=== PATIENT | female | born 1965 ===

== ENCOUNTER 2017-09-27 12:13 | Emergency (ER) | payer BC, SELFPAY ==
[2017-09-27 12:19] VITALS: BMI 27.3
[2017-09-27 12:20] VITALS: RESP 18; TEMP 98.2
[2017-09-27] MEDS ORDERED: Sodium Chloride 0.9% 1,000 ML IV ONE (12:56)
[2017-09-27 13:12] LABS: BASO # 0.1 K/uL (0.0-0.2); BASO % 0.7 % (0.0-2.0); EOS # 0.2 K/uL (0.0-0.7); EOS % 2.2 % (0.0-4.0); HEMOGLOBIN 13.5 g/dL (11.0-16.0); LYMPH # 1.2 K/uL (1.0-4.3); LYMPH % 13.8 % (20.0-40.0); MEAN CELL VOLUME 89.8 fL (81.0-99.0); MEAN CORPUSCULAR HEMOGLOBIN 30.9 pg (27.0-31.0); MEAN CORPUSCULAR HGB CONC 34.3 g/dL (33.0-37.0); MONO # 0.5 K/uL (0.0-0.8); MONO % 6.1 % (0.0-10.0); NEUT # 6.9 K/uL (1.8-7.0); NEUT % 77.2 % (50.0-75.0); RBC 4.39 Mil/uL (3.80-5.20); RED CELL DISTRIBUTION WIDTH 12.9 % (11.5-14.5); WHITE BLOOD COUNT 8.9 K/uL (4.8-10.8)
--- NOTE | 2017-09-27 13:17 | RAD ---
PROCEDURE: Radiographs of the chest and abdomen (obstructive series) HISTORY: abd pain COMPARISON: No prior. TECHNIQUE: AP radiograph of the chest, with upright and supine radiographs of the abdomen. FINDINGS: CHEST: Lungs: Mild bibasilar atelectasis. There are scattered small calcified granulomata seen throughout both lung [place] consistent with prior exposure to a granulomatous disease process. . Cardiovascular: Heart size is borderline enlarged. . No pulmonary vascular congestion. Pleura: No pleural fluid. No pneumothorax. Other findings: None. ABDOMEN AND PELVIS: Bowel: No evidence of acute mechanical bowel obstruction. Moderate amount of stool seen throughout the large bowel consistent with mild fecal retention/constipation. . Free air: None. Bones: Bilateral laminectomy and posterior fixation changes L5-S1 level. Suspect discectomy changes as well at this level. . Other findings: Metallic clips right upper quadrant of the abdomen consistent prior cholecystectomy. . IMPRESSION: Mild bibasilar atelectasis. Scattered calcified granulomata consistent with a prior exposure to a granulomatous disease process. No evidence of acute mechanical bowel obstruction Findings suggest mild constipation. No evidence of free intraperitoneal air. Status post cholecystectomy. Postoperative laminectomy probable discectomy and posterior fusion L5-S1 level as above.
[2017-09-27] MEDS ORDERED: Sodium Chloride 0.9% 1,000 ML ONE (13:24)
--- NOTE | 2017-09-27 13:26 | C.PDOC ---
History Of Present Illness 52 year old female presents to the ED c/o epigastric/colic pain for the past 3 days. Patient reports she has a history of cholecystectomy. Patient denies fever , chills, nausea, vomit, diarrhea. Time Seen by Provider: 09/27/17 12:50 Chief Complaint (Nursing): Abdominal Pain History Per: Patient History/Exam Limitations: no limitations Onset/Duration Of Symptoms: Days Current Symptoms Are (Timing): Still Present Location Of Pain/Discomfort: Epigastric Radiation Of Pain To:: None Quality Of Discomfort: Other (Colic) Exacerbating Factors: None Alleviating Factors: None Additional History Per: Patient Abnormal Vaginal Bleeding: No Past Medical History Reviewed: Historical Data, Nursing Documentation, Vital Signs Vital Signs: Last Vital Signs Temp 98.2 F 09/27/17 12:19 Pulse 60 09/27/17 14:49 Resp 18 09/27/17 14:49 BP 120/77 09/27/17 14:49 Pulse Ox 98 09/27/17 17:05 - Medical History PMH: No Chronic Diseases Surgical History: No Surg Hx Family History: States: Unknown Family Hx - Social History Hx Alcohol Use: No Hx Substance Use: No - Immunization History Hx Tetanus Toxoid Vaccination: No Hx Influenza Vaccination: No Hx Pneumococcal Vaccination: No Review Of Systems Constitutional: Negative for: Fever, Chills Cardiovascular: Negative for: Chest Pain, Palpitations Respiratory: Negative for: Cough, Shortness of Breath Gastrointestinal: Positive for: Abdominal Pain. Negative for: Nausea, Vomiting Skin: Negative for: Rash Physical Exam - Physical Exam Appears: Non-toxic, No Acute Distress Skin: Normal Color, Warm, Dry Head: Atraumatic, Normacephalic Eye(s): bilateral: Normal Inspection Nose: No Discharge, No Deformity Oral Mucosa: Moist Neck: Normal ROM, Supple Chest: Symmetrical Cardiovascular: Rhythm Regular, No Murmur Respiratory: Normal Breath Sounds, No Rales, No Rhonchi, No Wheezing Gastrointestinal/Abdominal: Soft, No Tenderness, No Guarding, No Rebound, Other (Negative McBurney's, negative [place]) Extremity: Normal ROM, No Deformity, No Swelling Neurological/Psych: Oriented x3, Normal Speech, Normal Cognition Gait: Steady ED Course And Treatment - Laboratory Results Result Diagrams: 09/27/17 13:04 09/27/17 13:04 Lab Interpretation: Abnormal (mild elev bili 1.4, AST/ALT 320/274, alk phos 274 wnl) O2 Sat by Pulse Oximetry: 98 (ON RA) Pulse Ox Interpretation: Normal - Other Rad Obstructive series X-Ray X-Ray: Viewed By Me, Read By Radiologist Interpretation: PROCEDURE: Radiographs of the chest and abdomen (obstructive series). HISTORY: abd pain. COMPARISON: No prior. TECHNIQUE: AP radiograph of the chest, with upright and supine radiographs of the abdomen. FINDINGS: CHEST: Lungs: Mild bibasilar atelectasis. There are scattered small calcified granulomata seen throughout both lung burn[place] consistent with prior exposure to a granulomatous disease process. . Cardiovascular: Heart size is borderline enlarged. . No pulmonary vascular congestion. Pleura: No pleural fluid. No pneumothorax. Other findings: None. ABDOMEN AND PELVIS: Bowel: No evidence of acute mechanical bowel obstruction. Moderate amount of stool seen throughout the large bowel consistent with mild fecal retention/ constipation. . Free air: None. Bones: Bilateral laminectomy and posterior fixation changes L5-S1 level. Suspect discectomy changes as well at this level. . Other findings: Metallic clips right upper quadrant of the abdomen consistent prior cholecystectomy. . IMPRESSION: Mild bibasilar atelectasis. Scattered calcified granulomata consistent with a prior exposure to a granulomatous disease process. No evidence of acute mechanical bowel obstruction Findings suggest mild constipation. No evidence of free intraperitoneal air. Status post cholecystectomy. Postoperative laminectomy probable discectomy and posterior fusion L5-S1 level as above. - CT Scan/US Abdomen US Other Rad Studies (CT/US): Read By Radiologist, Radiology Report Reviewed CT/US Interpretation: HISTORY: epigastric colic, h/o ace- elev LFT's. COMPARISON: None. TECHNIQUE: Sonographic evaluation of the right upper quadrant of the abdomen. FINDINGS: LIVER: Liver measures approximately 15.2 cm in in CC dimension. Liver demonstrates smooth contour and increased echotexture suggesting fatty infiltration however other infiltrative hepatocellular disease process not excluded. No mass. No intrahepatic bile duct dilatation. . No ascites. Portal vein demonstrates hepatopetal flow. GALLBLADDER: Status post cholecystectomy. No sonographic Preston sign. COMMON BILE DUCT: Common bile duct is prominent measuring approximately 6.8 mm. No stones. No dilatation. PANCREAS: Pancreas is not well delineated due to body habitus and bowel gas. RIGHT KIDNEY: Right kidney measures approximately 9.9 x 4.7 x 4.5 cm in length. Normal echogenicity. No calculus, mass, or hydronephrosis. . There is a small mid to lower pole cyst that measures approximately 1 cm in greatest dimension. AORTA: No aneurysmal dilatation. IVC: Unremarkable. OTHER FINDINGS: None . IMPRESSION: Status post cholecystectomy. Slightly dilated common bile duct likely due to post cholecystectomy state. No evidence of choledocholithiasis so far as can be seen. Small mid-lower pole cyst as above. No evidence of shadowing calculi or hydronephrosis Progress Note: ns, toradol Reevaluation Time: 17:30 Reassessment Condition: Improved Medical Decision Making Medical Decision Making: Impression : abdominal pain Plan: * Labs * Obstructive series X-Ray * UA * Pepcid 20 mg IVP * IV fluids * Toradol 30 mg IVP mild elev bili/lft's and dilated CBD c/w h/o cholecycstectomy and NOT acute choledocolythiasis nor biliary colic. periumbilical colic, more c/w constipation (FOS) Disposition Doctor Will See Patient In The: Office Counseled Patient/Family Regarding: Studies Performed, Diagnosis - Disposition Disposition: HOME/ ROUTINE Disposition Time: 17:42 Condition: GOOD Forms: [facility] ([place]) - Clinical Impression Clinical Impression: Colicky periumbilical abdominal pain - Scribe Statement The provider has reviewed the documentation as recorded by the Scribe Flash Alvarez All medical record entries made by the Scribe were at my direction and personally dictated by me. I have reviewed the chart and agree that the record accurately reflects my personal performance of the history, physical exam, medical decision making, and the department course for this patient. I have also personally directed, reviewed, and agree with the discharge instructions and disposition.
[2017-09-27 13:28] LABS: ALBUMIN 4.2 g/dL (3.5-5.0); BLOOD UREA NITROGEN 13 mg/dL (7-17); CALCIUM 9.4 mg/dl (8.6-10.4); GFR AFRICAN-AMERICAN > 60; GFR NON-AFRICAN AMERICAN > 60; LIPASE 205 U/L (23-300)
[2017-09-27 13:29] LABS: SQUAMOUS EPITHIAL 1 /hpf (0-5); URINE BILIRUBIN NEGATIVE (NEGATIVE); URINE BLOOD NEGATIVE (NEGATIVE); URINE CLARITY Clear (Clear); URINE COLOR Straw (YELLOW); URINE GLUCOSE (UA) NORMAL (Normal); URINE LEUKOCYTE ESTERASE 1+ Leu/uL (Negative); URINE NITRATE NEGATIVE (NEGATIVE); URINE PROTEIN NEGATIVE (NEGATIVE); URINE UROBILINOGEN NORMAL mg/dL (0.2-1.0)
[2017-09-27 13:40] LABS: ALB/GLOB RATIO 1.3 (1.0-2.1); ALT/SGPT 274 U/L (9-52); AST/SGOT 320 U/L (14-36)
--- NOTE | 2017-09-27 16:33 | US ---
HISTORY: epigastric colic, h/o ace- elev LFT's COMPARISON: None. TECHNIQUE: Sonographic evaluation of the right upper quadrant of the abdomen. FINDINGS: LIVER: Liver measures approximately 15.2 cm in in CC dimension. Liver demonstrates smooth contour and increased echotexture suggesting fatty infiltration however other infiltrative hepatocellular disease process not excluded. No mass. No intrahepatic bile duct dilatation. . No ascites. Portal vein demonstrates hepatopetal flow. GALLBLADDER: Status post cholecystectomy. No sonographic Preston sign. COMMON BILE DUCT: Common bile duct is prominent measuring approximately 6.8 mm. No stones. No dilatation. PANCREAS: Pancreas is not well delineated due to body habitus and bowel gas. RIGHT KIDNEY: Right kidney measures approximately 9.9 x 4.7 x 4.5 cm in length. Normal echogenicity. No calculus, mass, or hydronephrosis. . There is a small mid to lower pole cyst that measures approximately 1 cm in greatest dimension. AORTA: No aneurysmal dilatation. IVC: Unremarkable. OTHER FINDINGS: None . IMPRESSION: Status post cholecystectomy. Slightly dilated common bile duct likely due to post cholecystectomy state. No evidence of choledocholithiasis so far as can be seen. Small mid-lower pole cyst as above. No evidence of shadowing calculi or hydronephrosis
[2017-09-27 17:58] VITALS: BP 130/81; PULSE 71; O2SAT 100
== END 2017-09-27 17:58 | disposition home or self-care (01) ==
LOC: C.ER 12:13
DX: R10.33 Periumbilical pain (principal)
CPT/HCPCS: 74022; 76705; 80053; 81001; 83690; 85025; 96361; 96374; 96375; 99284; J1885; J7040